=== PATIENT | male | born 1985 | race Caucasian/White ===

== ENCOUNTER 2018-04-25 22:57 | Emergency (ER) | payer MEDICAID, SELFPAY ==
--- NOTE | 2018-04-25 23:02 | DI.REPORT_ITS ---
SYMPTOM/DIAGNOSIS: PAIN S/P FALL LEFT ANKLE: Three views. No acute fracture or dislocation identified. IMPRESSION: No acute abnormality. LEFT FOOT: Three views. No acute fracture or dislocation seen. No radiopaque foreign bodies seen in the soft tissues. IMPRESSION: No acute abnormality.
[2018-04-25 23:03] VITALS: BP 103/62; PULSE 66; RESP 18; TEMP 38.1; O2SAT 97
--- NOTE | 2018-04-25 23:10 | ED.GENADUL ---
Disposition Clinical Impression: Left ankle sprain, Sprain of left foot Disposition: HOME Condition: Good Instructions: Ankle Sprain (ED) Additional Instructions: if pain is not better in a week see your primary care provider you can take 1000mg tylenol and 600mg ibuprofen every 6 hours for pain as needed Medical Decision Making - Radiology Data Radiology results: report reviewed, image reviewed - Medical Decision Making Pt here with sprain vs strain vs fracture, will obtain xray. Denies hitting his head and states was purely mechaincal fall so do not feel workup for syncope vs presyncope indicated at this time and no other imaging indicated. He is noted to have a mild low grade temp but has a sunburn on his face, will have nursing recheck this, he denies fevers or other infectious symptoms xrays show no acute findings. Will give crutches and walking boot, advised f/u with pcp if no improvement - Differential Diagnosis sprain, strain, fracture, dislocation History of Present Illness - General Chief complaint: Orthopedic Stated complaint: L ANKLE INJ Time Seen by Provider: 04/25/18 23:01 Source: patient Mode of arrival: wheelchair Limitations: no limitations - History of Present Illness Initial comments: 32 yo male with hx of substance abuse who comes in with cc of left ankle and foot pain. HE was playing softball and while running from [employer] [place] to [place] states he inverted his left ankle and had pain. He did not lose consciousness or strike his head. He has no pain anywhere other than mid left foot and lateral left ankle. He has no significant abnormalities on visual or palpation exam, 2+ dp/pt pulses and intact sensation Complaint: left ankle and foot pain Onset/Timin -: hour(s) Location: lower extremity Radiation: non-radiation Severity scale (1-10): 10 Quality: aching Consistency: constant Improves with: rest Worsens with: movement Associated Symptoms: denies other symptoms Treatments Prior to Arrival: none - Related Data Bupropion HCl [Wellbutrin Xl] 150 mg PO DAILY #90 tab-cap 01/02/17 Trazodone HCl 100 mg PO DAILY #90 tab-cap 01/02/17 Allergies Allergy/AdvReac Type Severity Reaction Status Date / Time No Known Allergies Allergy Unverified 04/25/18 23:04 Review of Systems Constitutional: denies: fever Respiratory: denies: shortness of breath Cardiovascular: denies: chest pain Gastrointestinal: denies: abdominal pain, nausea, vomiting Neurological: denies: headache Comment: All other systems reviewed and negative Past Medical History - Past Medical History Crohn's disease, substance abuse - Social History Smoking status: current everyday smoker Alcohol use: occasionally Drug use: none General Exam - General Limitations: no limitations General appearance: alert, in no apparent distress - Head Head exam: Present: atraumatic - Eye Eye exam: Present: normal apperance - ENT ENT exam: Present: mucous membranes moist - Neck Neck exam: Present: normal inspection, full ROM. Absent: tenderness - Respiratory Respiratory exam: Absent: respiratory distress - Cardiovascular Cardiovascular Exam: Present: regular rate - GI/Abdominal GI/Abdominal exam: Present: soft. Absent: tenderness - Extremities Exam Extremities exam: Present: normal inspection, normal capillary refill, other (see hpi) - Neurological Exam Neurological exam: Present: alert, oriented X3 - Psychiatric Psychiatric exam: Present: normal affect - Skin Skin exam: Present: warm Course Vital Signs - 24 hr 08/05/18 23:03 Temperature 100.5 F H Pulse 66 Respiratory 18 Rate Blood Pressure 103/62 Pulse Oximetry 97
[2018-04-25] MEDS: Acetaminophen 500 MG TAB 1000 MG PO (23:12)
--- NOTE | 2018-04-25 23:23 | DI.VRAD_ITS ---
EXAM: XR Left Ankle Complete, 3 or More Views CLINICAL HISTORY: 32 years old, male; Pain; Ankle and foot; Left; Patient HX: Rolled ankle while playing softball. Pain on top of foot TECHNIQUE: Frontal, lateral and oblique views of the left ankle. COMPARISON: No relevant prior studies available. FINDINGS: Bones/joints: Unremarkable. No acute fracture. No dislocation. Soft tissues: Unremarkable. IMPRESSION: 1. Unremarkable examination left ankle. 2. If symptoms/signs persist or if there is concern of an occult injury, then short interval followup study may be of benefit in evaluation. Dictated and Authenticated by: Polo Whitaker MD. Ordering:CARLENE SHUKLA MD
--- NOTE | 2018-04-25 23:25 | DI.VRAD_ITS ---
EXAM: XR Left Foot Complete, 3 or More Views CLINICAL HISTORY: 32 years old, male; Pain; Ankle and foot; Left; Patient HX: Rolled ankle while playing softball. Pain on top of foot TECHNIQUE: Frontal, lateral and oblique views of the left foot. COMPARISON: No relevant prior studies available. FINDINGS: Bones/joints: Unremarkable. No acute fracture. No dislocation. Soft tissues: Unremarkable. No radiopaque foreign body. IMPRESSION: 1. Unremarkable examination of the left foot. 2. If symptoms/signs persist or if there is concern of an occult injury, then short interval followup study may be of benefit in evaluation. Dictated and Authenticated by: Polo Whitaker MD. Ordering:CARLENE SHUKLA MD
[2018-04-25] MEDS: Ibuprofen 600 MG TAB PO (23:45)
== END 2018-04-25 23:46 | disposition home or self-care (01) ==
PROVIDERS: Emergency Provider Emergency Medicine; PCP Family Medicine
DX: S93.402A Sprain of unspecified ligament of left ankle, initial encounter (principal); S93.602A Unspecified sprain of left foot, initial encounter; X50.9XXA Other and unspecified overexertion or strenuous movements or postures, initial encounter; Y93.64 Activity, baseball
CPT/HCPCS: 29515; 99284; 73610; 73630; 99283

== ENCOUNTER 2020-06-02 19:06 | Emergency (ER) | payer SELFPAY ==
[2020-06-02 19:13] VITALS: BP 128/79; PULSE 84; RESP 16; TEMP 36.8; O2SAT 95
--- NOTE | 2020-06-02 19:25 | ED.GENADUL_ITS ---
Discharge Plan Disposition Patient Disposition: HOME Condition: Good Discharge Details Clinical Impression: Contact dermatitis Primary Care Provider: Toño Benitez ED Provider: Daron Blanco Home Meds and New Rx's Prescriptions: New prednisone 20 mg tablet 20 mg PO DAILY Qty: 42 RF: 0 hydrocortisone 2.5 % cream 1 applic topical BID Qty: 20 RF: 0 Discharge Instructions Instructions: Dermatitis (ED) Additional Instructions: At this time I believe you are demonstrating notable/severe manifestations of a contact dermatitis likely from poison denisa or more likely poison oak or sumac. Please sparingly apply the steroid ointment to the most affected/worst areas only as needed. More importantly please take the steroid pills as directed. Take Tylenol and Motrin as needed for pain, Benadryl as needed for itching. If you notice any worsening of your symptoms, or any new symptoms such as vomiting, diarrhea, fever, chills, shortness of breath, chest pain, numbness, weakness, or fainting , please return immediately to the emergency department for reevaluation. Please follow up with your primary care provider in 1 week for reassessment and reevaluation. As always, it was a pleasure participating in your medical care today. Referrals: Toño Benitez MD [Primary Care Provider] - Medical Decision Making 34-year-old male with a past medical history of Crohn's disease, not currently on any medications, presents today for evaluation of rash in his right arm initially, and then his extremities. Patient states that for 3 days he has had this notable rash. Patient states that he did walk through the [place] 3 days prior but at that time he was wearing long sleeves, long pants, and keeping himself covered. Initially he noticed a significant rash in his right upper extremity, but since then it is spread down by his ankles, and to his left arm. It is spared the chest back and buttock. Patient admits to a burning sensation, denies severe itching. He denies systemic symptoms. He has been taking Benadryl and washing with Lauren dish soap but this has not been improving his symptoms. He has been rubbing calamine lotion on with no improvement. Patient states that he has had poison denisa reactions that were bad in the past, but none this severe. Of note he does not take any medications for his Crohn's right now. Physical exam demonstrates Negative Nikolsky sign. Negative Asboe Cramer sign, No palpable purpura. No oral lesions. No mucosal lesions. No evidence of severe cellulitis. No evidence of vaccine preventable rash. Patient's right upper extremity demonstrates notable irritation to the skin, small vesicular/bullous lesions, as well as evidence of dermatographia with associated small bulla. There are small erythematous lesions noted near the patient's ankles, as well as on his left arm on the medial aspect. No other concerning lesions or abnormalities otherwise. Signs and symptoms appear clinically consistent with a contact dermatitis likely from an oil based emollient. I do feel that the patient would benefit from both a topical steroid use sparingly, as well as systemic steroids for an extended. Of 3 weeks. With no oral lesions or other concerning abnormalities no further indication for laboratory work-up. Recommend follow-up with his PCP in 1 week. Discussed red flags which to return. I have extensively reviewed the treatment plan and discharge instructions with the patient. I have addressed all patient concerns at this time. The patient was made aware of what symptoms to monitor for that would warrant a return to the emergency department. Discussed the plan with the patient, they demonstrate verbal understanding and agreement with our assessment and plan at this time. HPI General Date/Time Provider Initiated Documentation: 06/02/20 19:25 . HPI Narrative: 34-year-old male with a past medical history of Crohn's disease, not currently on any medications, presents today for evaluation of rash in his right arm initially, and then his extremities. Patient states that for 3 days he has had this notable rash. Patient states that he did walk [place] days prior but at that time he was wearing long sleeves, long pants, and keeping himself covered. Initially he noticed a significant rash in his right upper extremity, but since then it is spread down by his ankles, and to his left arm. It is spared the chest back and buttock. Patient admits to a burning sensation, denies severe itching. He denies systemic symptoms. He has been taking Benadryl and washing with Lauren dish soap but this has not been improving his symptoms. He has been rubbing calamine lotion on with no improvement. Patient states that he has had poison denisa reactions that were bad in the past, but none this severe. Of note he does not take any medications for his Crohn's right now. Related Data Home Medications Medication Instructions Recorded Confirmed hydrocortisone 1 applic TOPICAL BID #20 g 06/02/20 prednisone 20 mg PO DAILY #42 tab 06/02/20 Previous Rx's Medication Instructions Recorded hydrocortisone 1 applic TOPICAL BID #20 g 06/02/20 prednisone 20 mg PO DAILY #42 tab 06/02/20 Allergies Allergy/AdvReac Type Severity Reaction Status Date / Time No Known Allergies Allergy Unverified 06/02/20 19:19 General Stated Complaint: RashLesion [place]: 4 Review of Systems All systems reviewed & are unremarkable except as noted in HPI and below PFSH Family History Mother No problems noted. Father No problems noted. Sister No problems noted. Brother No problems noted. Grandfather No problems noted. Grandfather No problems noted. Grandmother No problems noted. Grandmother No problems noted. Son No problems noted. Daughter No problems noted. Social History Smoking/Tobacco Use Status: Former Tobacco Use Alcohol Intake: current Alcohol Intake frequency: 3 or more drinks per day Drug use: Never Substance use type: does not use Do you feel safe at home: Yes Do you feel safe in your relationship?: Yes Exam Narrative Exam Narrative: 1.Const: Well-nourished, Well-developed, appearing stated age 2.Eyes: PERRL, no conjunctival injection, and symmetrical lids. 3.ENT: Atraumatic external nose and ears. Moist MM. Neck: Symmetric, trachea midline, No thyromegaly. 4.CVS: +S1/S2, No murmurs or gallops. Peripheral pulses 2+ and equal in all extremities. Brisk capillary refill in all extremities. 5.RESP: Unlabored respiratory effort. Clear to auscultation bilaterally. No wheezes rales or rhonchi 6.GI: Soft, Nontender/Nondistended, No hepatosplenomegaly. No guarding or rebound. 7.MSK: Normocephalic/Atraumatic, Extremities w/o deformity or ttp No cyanosis or clubbing, Normal movement of all extremities 8.Skin: Negative Nikolsky sign. Negative Asboe Cramer sign, No palpable purpura. No oral lesions. No mucosal lesions. No evidence of severe cellulitis. No evidence of vaccine preventable rash. Patient's right upper extremity demonstrates notable irritation to the skin, small vesicular/bullous lesions, as well as evidence of dermatographia with associated small bulla. There are small erythematous lesions noted near the patient's ankles, as well as on his left arm on the medial aspect. No other concerning lesions or abnormalities otherwise. 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 Sensation grossly intact, no focal neurologic deficits. 10.Psych: (AAO) x3. Appropriate mood and affect Course Vital Signs Vital signs: Vital Signs Temperature 36.8 C 06/02/20 19:13 Pulse 84 06/02/20 19:13 Respiratory Rate 16 06/02/20 19:13 Blood Pressure 128/79 06/02/20 19:13 Pulse Oximetry 95 06/02/20 19:13 Temperature 36.8 C 06/02/20 19:13 Temperature Source Skin 06/02/20 19:13 Pulse 84 06/02/20 19:13 Respiratory Rate 16 06/02/20 19:13 Respiratory Effort Non-Labored 06/02/20 19:17 Blood Pressure 128/79 06/02/20 19:13 Blood Pressure Position Sitting 06/02/20 19:13 Pulse Oximetry 95 06/02/20 19:13 Oxygen Delivery Method Room Air 06/02/20 19:13 Oxygen Flow Rate 0 06/02/20 19:13 Pain Level 10 06/02/20 19:13
[2020-06-02 19:49] VITALS: BP 128/79; PULSE 84; RESP 16; TEMP 36.8; O2SAT 95
[2020-06-02] MEDS: predniSONE 20 MG TAB 60 MG PO (19:49)
== END 2020-06-02 19:45 | disposition home or self-care (01) ==
PROVIDERS: Emergency Provider Student in an Organized Health Care Education/Training Program; PCP Family Medicine
DX: L23.7 Allergic contact dermatitis due to plants, except food (principal)
CPT/HCPCS: 99283; J7512